=== PATIENT | female | born 1960 | race Caucasian/White ===

== ENCOUNTER 2018-05-29 05:19 | Day surgery (SDC) | payer SELFPAY ==
[2018-05-23 11:33] LABS: Hematocrit 38.6 % (37-47); Hemoglobin 12.6 g/dl (12.0-15.0); Mean Corp Hgb Conc 32.6 g/gl (32-36); Mean Corpuscular Hgb 30.1 pg (27.0-32.0); Mean Corpuscular Volume 92.1 fL (81-99); Mean Platelet Vol. 9.1 fl (6.2-12.0); Platelet Count 248 K/mm3 (150-450); RBC Distribution Width SD 40.5 fl (35.1-43.9); Red Blood Count 4.19 M/mm3 (4.2-5.4); White Blood Count 6.2 K/mm3 (4.4-11.0)
[2018-05-23 11:34] LABS: International Normalized Ratio 1.1; Prothrombin Time (Protime)PT. 13.9 SECONDS (11.7-14.9); Scan Indicated on CBC? Y/N NO
[2018-05-23 11:35] LABS: Partial Thromboplast Time 31.5 Seconds (24.1-36.2)
[2018-05-23 12:02] LABS: Anion Gap 10 (5-15); BUN 13 mg/dL (7-18); BUN/Creat Ratio 17.4 RATIO (10-20); Calcium,Total 8.9 mg/dL (8.5-10.1); Chloride 108 mmol/L (98-107); Creatinine, Serum 0.75 mg/dL (0.55-1.02); EST Glomerular Filtration Rate 85 mL/min (>60); Est Glom Filt Rate - Afr Amer 103 mL/min (>60); Glucose 91 mg/dL (74-106); Potassium 4.3 mmol/L (3.5-5.1); Sodium Level 143 mmol/L (136-145)
[2018-05-29] VITALS (8 sets, daily range): BP systolic 116–139; BP diastolic 71–83; PULSE 56–75; RESP 14–16; TEMP 36–36.3; O2SAT 95–100; BMI 31.4
--- NOTE | 2018-05-29 | EMB_PTH ---
PATIENT: CHEYENNE YIP LOC: [facility] [place] U#:[id number] AGE/SX: 58/F ROOM: RE05/29/[address]: Dr. Sara Mae MD : 1960 BED: DIS: 05/29/2018 SPEC #: [id number] RECD: 05/29/18 14:16 STATUS: YOU REJuan M #: [id number] DYLAN: 05/29/18 00:[address]: Sara Blackwell DEPT: SURGICAL PATHOLOGY RECD BY: Dayne Roth ENTERED: 05/29/18 14:16 SP TYPE: ENDOM BX/C OTHR DR: Dr. Denzel Don DO Tissues: Endometrium, NOS Procedures: Surgery Specimen Level IV HEADER OPERATION: Hysteroscopy, D & C, Myosure PRE-OP DIAGNOSIS: Polyp of corpus uteri and postmenopausal bleeding TISSUE SUBMITTED: Endometrial curettings and fibroid MICROSCOPIC DIAGNOSIS Endometrium, curettings: Endometrial adenocarcinoma, FIGO grade 2. See comment. AM:leti 05/30/18 COMMENT Immunohistochemistry ([id number]) supports the above diagnosis. The adenocarcinoma has villoglandular and focal papillary features. MICROSCOPIC DESCRIPTION Slides are reviewed. GROSS DESCRIPTION Received in fixative is one container labeled with the patient's name and designated endometrial curettings and fibroid. The specimen consists of multiple irregular fragments of hood-white soft tissue that in aggregate measure 7.5 x 3 x 0.3 cm. The entire specimen is submitted in three cassettes. / SJ:leti 05/29/18 TC:0 CPT: 43990
--- NOTE | 2018-05-29 | IMM_PTH ---
PATIENT: CHEYENNE [place]IP [place] [facility] [place][id number] AGE/SX: 58/F ROOM: RE05/29/[address]: Dr. Sara Mae MD : 1960 BED: DIS: 05/29/2018 SPEC #: [id number] RECD: 05/30/18 12:10 STATUS: YOU REQ #: [id number] DYLAN: 05/29/18 00:[address]: Sara Blackwell DEPT: IMMUNOHISTOCHEMISTRY RECD BY: Sarah Díaz ENTERED: 05/30/18 12:13 SP TYPE: IMMUNO OTHR DR: Dr. Denzel Don, DO Tissues: Endometrium, NOS Procedures: MSH2 (add) MLH-1 (add) MSH6 (add) Anti-PMS2 (add) CEA (add) CK20 (add) CK7 (add) CK8 (add) KELLY (add) KI-67 (add) P53 (add) NM (add) Vimentin (add) 34BE12 (add) ER (initial) PHYSICIAN & [address] [address] SPECIMEN INFORMATION: Tissue Source: Endometrial curettings Clinical Info: Polyp of corpus uteri and postmenopausal bleeding Specimen Number: [id number] #1 CPT code: 57412, 47184 x14 METHODOLOGY: Deparaffinized sections of prefer/formalin-fixed tissue or PAP/DQ stained slides are incubated with monoclonal/polyclonal antibodies/oligonucleotide probes. Localization is made via biotin free immunoperoxidase method. Appropriate controls are performed and reacted as expected. Results on target cell population are indicated in the following table: RESULTS: ANTIBODY / CLONE RESULT Block 1 ER (6F11) positive NM (1E2) positive CEA (11-7/TF-3HB-1) negative Vimentin (V9) positive CK7 (OV-TL12/30) positive CK8 (47zcrdC21) positive 34BE12 (34BE12) positive CK20 (KS20.8) negative KELLY (E29) positive Ki-67 (30-9) positive, moderate P53 (DO-7) positive MSH2 (25D12) positive MSH6 (44) positive MLH-1 (M1) positive PMS2 (VOV4651) positive These tests were developed and their performance characteristics determined by [facility]. They may not have been cleared or approved by the U.S. Food and Drug Administration. The FDA has determined that such clearance or approval is not necessary. INTERPRETATION: Endometrial curettings: Consistent with endometrial adenocarcinoma, FIGO grade 2 ADDENDUM ADDENDUM ADDENDUM ADDENDUM 06/11/2018 11:55 ADDENDUM 06/11/2018 11:55 ADDENDUM 06/11/2018 11:55 ADDENDUM 06/11/2018 11:55 ADDENDUM 06/11/2018 11:55 There is no evidence of microsatellite instability. AM:leti 06/11/18
--- NOTE | 2018-05-29 08:04 | PCM.OPRPT ---
Problem List (1) Postmenopausal bleeding Status: Acute Comment: Thickened endometrial stripe Report of Operation Date of Procedure: 05/29/18 Pre-Operative Diagnosis: Postmenopausal bleeding Post-Operative Diagnosis: Postmenopausal bleeding Surgery/Procedure Performed:: Hysteroscopy, dilation and curettage, Myosure endometrial resection and myomectomy Description of Surgical Findings:: Anterior submucosal fibroid type II Abundant fluffy endometrium over the left and posterior uterine parish Examination under anesthesia was significant for mild to moderate cystocele > 1cm apical to hymenal ring and moderate rectocele within 1cm apical of hymenal ring. There was good uterine descensus. Patient would be a candidate for vaginal hysterectomy if indicated. Type of Anesthesia:: Local MAC Anesthesiologist: Ant Locke Specimen's removed: Endometrial curettings and fibroid Drains: Urine 150 mL Estimated Blood Loss (mL): 5 Fluids Replaced: 800 mL Description of Procedure: Indications: Roberta is a 58-year-old postmenopausal woman with history of bleeding. She had an ultrasound demonstrating a 16 mm endometrial stripe. She was advised to proceed with hysteroscopy, D&C with myosure endometrial resection. Risks, benefits, indications and alternatives of procedure were reviewed. Consents were signed. Procedure: The patient was taken to the operating room and signed and was performed. She is placed in a dorsal supine position and induced under MAC anesthesia. She is then placed into dorsal lithotomy and examination under anesthesia performed. A weighted speculum was placed into the vagina the cervix visualized and grasped the anterior cervical lip using a single-tooth tenaculum. A paracervical block was placed with a total of 20 cc of 1% lidocaine. The uterus was sounded to 3 inches. The cervix was subsequently dilated and hysteroscopy performed demonstrating the noted findings with abundant fluffy endometrium along the posterior and left uterus obscuring the left tubal ostia. The right tubal ostia was visualized. I proceeded with hysteroscopic endometrial resection using the Myosure device and performed hysteroscopic myomectomy of an anterior wall uterine fibroid. Hysteroscope was removed and I proceeded with sharp curettage the uterus was globally gritty to palpation. The procedure was complete. The tenaculum was removed from the cervix and the speculum removed from the vagina. The tenaculum site had been hemostatic. The patient was then placed into the dorsal supine position, awakened and transferred to the recovery room without complication. Sponge counts were correct x2. Fluid deficit was approximately 200 mL. - Complications None - Admit VTE Documentation VTE Present on Admission: No VTE Mechan Device Prophylaxis: SCD's VTE Pharm Prophylaxis ordered?: No
--- NOTE | 2018-05-29 08:20 | PCM.DC.D&C ---
Discharge Diet: No Restrictions Discharge Activity: Return to Normal Activity, May Shower, - - No driving for 24-48 hours, no tub bath for 1-2 weeks May resume sexual activity in: 4 weeks Call your doctor if you observe: Fever of 101 or Higher, Inability to urinate, Inability to have a bowel movement, Using more than one pad per hour, Shortness of breath, Chest pain, Calf discomfort, Uncontrolled pain Allergies/Adverse Reactions: Allergies No Known Allergies Allergy (Verified 05/22/18 08:13) Medications to take at Discharge Alprazolam [Xanax] 0.25 mg PO QHS 05/22/18 Omeprazole 40 mg PO DAILY 05/22/18 Turmeric Root Extract [Turmeric] 1,000 mg PO DAILY 05/22/18 Ibuprofen 600 mg PO TID PRN #30 tab 05/29/18 The following prescriptions were given: Ibuprofen 600 mg PO TID PRN #30 tab PRN Reason: Pain Primary Care Physician: Denzel Don DO [Primary Care Provider] - Test Results: Test results from this visit will be discussed in further detail at your follow-up appointment, if applicable. Please Follow Up With: Sara Conroy MD When: 2 weeks
== END 2018-05-29 09:11 | disposition home or self-care (01) ==
LOC: SDC 05:19 → AC 05:20
PROVIDERS: Family Provider Student in an Organized Health Care Education/Training Program; PCP Student in an Organized Health Care Education/Training Program; Visit Provider Obstetrics & Gynecology
PROC: (CPT 58561; principal; 2018-05-29 07:00)
DX: C54.1 Malignant neoplasm of endometrium (principal); D25.0 Submucous leiomyoma of uterus; N95.0 Postmenopausal bleeding; N81.10 Cystocele, unspecified; N81.6 Rectocele; E78.00 Pure hypercholesterolemia, unspecified; F41.9 Anxiety disorder, unspecified; I49.9 Cardiac arrhythmia, unspecified; I35.0 Nonrheumatic aortic (valve) stenosis; K21.9 Gastro-esophageal reflux disease without esophagitis; Z87.891 Personal history of nicotine dependence; Z79.899 Other long term (current) drug therapy
CPT/HCPCS: 58561; 58563; 36415; 80048; 85027; 85610; 85730; 86850; 86900; 88305; 88341; 88342; 93005; J7120; J2405

== ENCOUNTER → 2018-06-30 12:38 | Outpatient (CLI) | payer SELFPAY ==
--- NOTE | 2018-06-30 12:44 | CT_ITS ---
STUDY: CT CHEST WITH CONTRAST REASON FOR EXAM: Female, 58 years old. History of cervical cancer. Recent resection of lymph nodes from the left groin. RADIATION DOSAGE (If Supplied By Facility): CTDIvol = ( 14.26 ) mGy, DLP = ( 1338.03 ) mGycm TECHNIQUE: Transaxial imaging was performed following intravenous administration of 100 ml of Isovue 300 contrast material. Multiplanar coronal and sagittal images were reformatted. Individualized dose optimization techniques were used for this CT. COMPARISON: None. FINDINGS: The lungs are normal. There is no demonstrated pleural abnormality. Normal heart and pericardium. Normal mediastinum. Normal hilar regions. Normal enhanced pulmonary arteries. Normal aorta arch and descending thoracic aorta. There are multi-level degenerative changes of the thoracic spine. Small cysts are seen in the upper pole of the right kidney. CT/Chest WITH Contrast IMPRESSION: No acute abnormality is seen. Electronically Signed: Delonte Lorenzana MD at 15:45 EDT Tel [phone], Service support ,
--- NOTE | 2018-06-30 12:44 | CT_ITS ---
STUDY: CT ABDOMEN AND PELVIS WITH CONTRAST REASON FOR EXAM: Female, 58 years old. Cervical cancer. Recent resection of lymph nodes from the left groin. RADIATION DOSAGE (If Supplied By Facility): CTDIvol = ( 14.26 ) mGy, DLP = ( 1338.03 ) mGycm TECHNIQUE: Transaxial images were obtained from the dome of the diaphragm to the symphysis pubis with oral contrast. 100 ml of Isovue 300 contrast was administered. Sagittal and coronal images were reconstructed. Individualized dose optimization techniques were used for this CT. COMPARISON: None. FINDINGS: The visualized lung bases are unremarkable. The visualized portions of the heart are within normal limits. Normal liver. Normal gallbladder and extrahepatic biliary system. Normal spleen. Normal pancreas. Normal bilateral adrenal glands. Multiple small cysts are seen in the right kidney. The largest measures 2.2 cm x 2 cm. Subcentimeters cysts in the mid upper portion of the left kidney There is a small hiatal hernia. Normal small intestine. There are multiple colonic diverticula consistent with diverticulosis. Moderate amount of fecal material is seen in the colon. The appendix is visualized and appears normal. Normal abdominal aorta. Normal inferior vena cava. Normal retroperitoneum. Normal urinary bladder. There is absence of the uterus consistent with a prior hysterectomy. There is a 1.2 cm x 1.4 cm fat-containing lymph node in the left hemipelvis. Normal abdominal wall. There are degenerative changes of the visualized lumbar spine. CT/Abdomen/Pelvis WITH Contrast IMPRESSION: Status post hysterectomy. No acute abnormality is seen. Electronically Signed: Delonte Lorenzana MD at 15:48 EDT Tel [phone], Service support ,
== END ==
PROVIDERS: Family Provider Student in an Organized Health Care Education/Training Program; PCP Student in an Organized Health Care Education/Training Program; Visit Provider Internal Medicine Hematology & Oncology
DX: C54.1 Malignant neoplasm of endometrium (principal); C77.9 Secondary and unspecified malignant neoplasm of lymph node, unspecified
CPT/HCPCS: 71260; 74177; Q9967

== ENCOUNTER → 2018-07-03 10:22 | Outpatient (CLI) | payer SELFPAY ==
[2018-07-03 08:54] VITALS: BMI 30.7
--- NOTE | 2018-07-03 10:26 | CDU_ITS ---
Reason For Study: Carotid bruit Rt. Velocities/BP Lt. Velocities/BP Prox CCA 78.6/14.7 cm/sec. Prox CCA 85.0/21.1 cm/sec. Mid CCA 82.1/22.9 cm/sec. Mid CCA 82.7/24.0 cm/sec. Dist CCA 94.4/25.2 cm/sec. Dist CCA 84.4/27.0 cm/sec. Prox ICA 66.3/25.8 cm/sec. Prox ICA 85.3/27.4 cm/sec. Mid ICA 70.4/27.6 cm/sec. Mid ICA 68.3/21.9 cm/sec. Dist ICA 72.7/28.7 cm/sec. Dist ICA 67.0/23.6 cm/sec. Rt. ICA/CCA = .89. Lt. ICA/CCA = 1.0. Prox ECA 60.4/14.7 cm/sec. Prox ECA 66.8/14.0 cm/sec. Rt. Vert. 54.5/18.2 cm/sec. Lt. Vert. 65.1/21.1 cm/sec. Right Extracranial There is no significant atherosclerotic plaque noted in the right common carotid artery. There is no significant atherosclerotic plaque noted in the right internal carotid artery. There is no significant atherosclerotic plaque noted in the right external carotid artery. Antegrade flow is noted in the right vertebral artery. Left Extracranial There is no significant atherosclerotic plaque noted in the left common carotid artery. There is no significant atherosclerotic plaque noted in the left internal carotid artery. There is no significant atherosclerotic plaque noted in the left external carotid artery. Antegrade flow is noted in the left vertebral artery. Procedure Carotid Duplex 94123. Exam performed in department. Interpretation Summary No hemodynamically significant plague or stenosis bilateral extracranial internal carotid arteries with <50% stenosis bilaterally Normal flow bilateral external carotids Patent and antegrade vertebrals bilaterally Ordering Physician: Eduardo Choe Referring Physician: Denzel Talavera Performed By: Yaima Deluca RVT
== END ==
PROVIDERS: Family Provider Student in an Organized Health Care Education/Training Program; PCP Student in an Organized Health Care Education/Training Program; Referring Provider Surgery; Visit Provider Surgery
DX: R09.89 Other specified symptoms and signs involving the circulatory and respiratory systems (principal)
CPT/HCPCS: 93880

== ENCOUNTER 2018-07-11 05:58 | Day surgery (SDC) | payer SELFPAY ==
[2018-07-03 08:54] VITALS: BMI 30.7
[2018-07-11 06:18] VITALS: BP 127/68; PULSE 64; RESP 16; TEMP 36.7; O2SAT 98; BMI 30.7
[2018-07-11] MEDS: Cefazolin 2 GM in 0.9% Normal Saline 100 ML IV (08:16)
--- NOTE | 2018-07-11 08:19 | DCINST_ITS ---
Discharge Diet: Light diet - advance as tolerated - if you have questions about your diet instructions, please talk to you doctor. Discharge Activity: May Not Drive - for 1 week or while taking narcotic pain medicine. May shower in (days): 1 Lifting Restrictions: 10 pounds Call your doctor if your incision/area has: Continuous Slow Oozing, Sudden Increased Bleeding, Increased Pain/ Swelling, Increased Redness, Foul Smelling Discharge Call your doctor if you observe: Fever of 101 or Higher Suture Line Care: Avoid Pulling/Pushing, Avoid Pinching/Bending Additional Dressing/Incision Instructions:: Change or remove dressing in 4 days. Leave steri-strips in place for 1 week. Allergies/Adverse Reactions: Allergies No Known Allergies Allergy (Verified 07/08/18 08:16) Medications to take at Discharge Alprazolam [Xanax] 0.25 mg PO QHS 05/22/18 Omeprazole 40 mg PO DAILY 05/22/18 Turmeric Root Extract [Turmeric] 1,000 mg PO DAILY 05/22/18 Lidocaine/Prilocaine [Lidocaine-Prilocaine Cream] 30 gm TP DAILY PRN PRN #1 cream..g. 07/01/18 Ondansetron [Zofran Odt] 8 mg PO Q8H PRN PRN 30 Days #30 tab 07/01/18 Multivitamin [Multiple Vitamins] 1 each PO DAILY 07/08/18 Dexamethasone [Decadron] 20 mg PO DAILY 126 Days #60 tablet 07/10/18 Primary Care Physician: Denzel Don DO [Primary Care Provider] - Test Results: Test results from this visit will be discussed in further detail at your follow- up appointment, if applicable. Please Follow Up With: Eduardo Choe MD - [phone] When: You may contact the office for any post op concerns
[2018-07-11] MEDS: Bupivacaine Mpf 0.5% 30 ML VIAL (08:31)
--- NOTE | 2018-07-11 08:59 | PCM.OPRPT ---
Problem List (1) Endometrium cancer Status: Acute Report of Operation Date of Procedure: 07/11/18 Pre-Operative Diagnosis: Endometrial cancer Post-Operative Diagnosis: Same Surgery/Procedure Performed:: Right internal jugular 6 Congolese PowerPort placement Description of Surgical Findings:: Timeout informed consent was obtained. 58-year-old female taken out from placement table underwent monitored anesthesia care. Ancef 2 g given intravenous the right neck and chest were sterilely prepped and draped. Total 16 cc of local was used 1% lidocaine mixed 50-50 with 0.5% Marcaine. Ultrasound was used to identify the right internal jugular vein. Local was instilled under ultrasound guidance. Micropuncture needle inserted. Micropuncture wire inserted. 6 Congolese short sheath dilator was inserted. Local was instilled down upon the chest wall. Transverse incision was created. Subtenons pocket was created. The tubing was tunneled from the neck to the chest. Micropuncture sheath was inserted in the sheath and dilator were removed and 035 J-wire was inserted the sheath dilator was inserted the dilator wire removed the catheter was advanced through the sheath the sheath was split and the catheter was positioned at the SVC atrial junction. The catheter was amputated to length connected to the port and secured there with a port attachment device. The port was placed in the pocket and secured there with 2-0 silk. Skin edges proximate interrupted 3-0 Vicryl subdermal stitches. The neck was closed with interrupted 5-0 Vicryl. Steri-Strips Telfa OpSite dressings applied. The port was accessed it aspirated easily was flushed with saline and then 3 cc of 10 unit/cc heparin solution per [facility] protocol. Sponge and instrument and needle counts were reported the surgeon be correct Blood loss minimal. Specimens none drains none. She was taken to the recovery area in satisfactory condition. Stat portable chest x-ray is pending. Eduardo Choe M.D., F.A.C.S. Type of Anesthesia:: Local MAC Anesthesiologist: [facility]
[2018-07-11 09:11] VITALS: BP 114/68; BP 127/68; PULSE 65; RESP 16; TEMP 36.3; O2SAT 99
[2018-07-11 09:15] VITALS: BP 126/73; BP 127/68; PULSE 63; RESP 16; O2SAT 100
--- NOTE | 2018-07-11 09:15 | RAD_ITS ---
STUDY: X-RAY CHEST REASON FOR EXAM: Female, 58 years old. PORT PLACEMENT TECHNIQUE: Single AP portable view of the chest. COMPARISON: None. FINDINGS: Mediport is seen on the right-sided tip is at the cavoatrial junction is in good position. The lungs are clear and expanded. There is no demonstrated pleural abnormality. Normal size heart. Normal mediastinum and angélica. Normal visualized pulmonary arteries. Normal visualized aortic arch and descending thoracic aorta. Normal visualized thoracic spine. Normal visualized ribs, clavicles, and shoulders. There is no demonstrated abnormality of the visualized soft tissue structures of the upper abdomen. RAD/Chest 1 View (Portable) IMPRESSION: Normal x-ray examination of the chest. Electronically Signed: Jass Jordan MD at 9:32 EDT Tel , Service support ,
[2018-07-11 09:20] VITALS: BP 127/68; BP 138/75; PULSE 64; RESP 16; O2SAT 98
[2018-07-11 09:28] VITALS: BP 124/79; BP 127/68; PULSE 72; RESP 16; TEMP 36.4; O2SAT 99
[2018-07-11 09:59] VITALS: BP 127/68
== END 2018-07-11 10:00 | disposition home or self-care (01) ==
LOC: SDC 06:00 → AC 06:02
PROVIDERS: Family Provider Student in an Organized Health Care Education/Training Program; PCP Student in an Organized Health Care Education/Training Program; Referring Provider Surgery; Visit Provider Surgery
PROC: (CPT 36561; principal; 2018-07-11 07:45)
DX: Z45.2 Encounter for adjustment and management of vascular access device (principal); C54.1 Malignant neoplasm of endometrium; F41.9 Anxiety disorder, unspecified; E78.00 Pure hypercholesterolemia, unspecified; Z79.899 Other long term (current) drug therapy; Z87.891 Personal history of nicotine dependence; R09.89 Other specified symptoms and signs involving the circulatory and respiratory systems; C77.9 Secondary and unspecified malignant neoplasm of lymph node, unspecified
CPT/HCPCS: 00532; 36561; 71045; 77001; J7120; C1788

== ENCOUNTER → 2018-07-22 10:25 | Outpatient (CLI) | payer SELFPAY ==
[2018-07-03 08:54] VITALS: BMI 30.7
--- NOTE | 2018-07-22 10:32 | BI_ITS ---
MAMMOGRAPHY - BILATERAL SCREENING REASON FOR EXAM: Female, 58 years old. Routine annual screening examination. PERTINENT HISTORY: Grandmother with breast cancer. The patient as a history of uterine carcinoma. TECHNIQUE: Digital bilateral breast traci (3D mammographic acquisition) in the CC and MLO projections. 2-D mediolateral oblique (MLO) and craniocaudad (CC) views of both breasts were obtained. CAD: Full Field Digital Mammography with Computer Added Detection was performed. COMPARISON: Comparison is made with prior outside examination dated March 26, 2016. FINDINGS: Breast Composition: There are scattered areas of fibroglandular density. There are no dominant masses or suspicious calcifications. Stable appearance of the left axillary lymph nodes. No other significant abnormalities are identified. There has been no significant change since the prior study. BI/SCREENING MAMM (CAD), BILAT IMPRESSION: Stable bilateral screening mammogram. Yearly follow-up mammogram recommended. (A) ASSESSMENT CATEGORY: BIRADS Category 2: Benign. A letter regarding these results will be sent to the patient by the facility within 30 days. Approximately 10% of breast cancers are not detected by mammography. A normal mammogram should not delay biopsy of a clinically suspicious abnormality. [id number] Electronically Signed: Delonte Lorenzana MD at 13:21 EDT Tel [phone], Service support ,
== END ==
PROVIDERS: Family Provider Student in an Organized Health Care Education/Training Program; PCP Student in an Organized Health Care Education/Training Program; Visit Provider Internal Medicine Hematology & Oncology
DX: Z12.31 Encounter for screening mammogram for malignant neoplasm of breast (principal); C54.1 Malignant neoplasm of endometrium; C77.9 Secondary and unspecified malignant neoplasm of lymph node, unspecified
CPT/HCPCS: 77063; 77067

== ENCOUNTER → 2019-02-04 | Outpatient (CLI) | payer SELFPAY ==
[2018-07-03 08:54] VITALS: BMI 30.7
[2019-01-28 13:11] VITALS: BMI 31.4
--- NOTE | 2019-02-04 06:48 | CT_ITS ---
STUDY: CT ABDOMEN AND PELVIS WITH CONTRAST REASON FOR EXAM: Female, 58 years old. Endometrial Cancer. Status post chemotherapy. RADIATION DOSAGE (If Supplied By Facility): CTDIvol = ( 21.77 ) mGy, DLP = ( 1593.75 ) mGycm TECHNIQUE: Transaxial images were obtained from the dome of the diaphragm to the symphysis pubis with oral contrast. 100mL ml of Isovue 300 contrast was administered. Sagittal and coronal images were reconstructed. Individualized dose optimization techniques were used for this CT. COMPARISON: CT abdomen and pelvis 06/30/2018 FINDINGS: Body wall soft tissues: No acute process. Osseous structures: No acute process. Inferior chest: See chest CT report. Hepatobiliary: Normal. Pancreas: Mild atrophy. Spleen: Normal. Adrenal glands: Normal. Urogenital: Stable benign right renal cysts. Otherwise unremarkable kidneys, collecting systems, ureters, urinary bladder. The uterus is surgically absent. There is no adnexal mass, or cyst and there is no cul-de-sac free fluid. Pelvic floor and sidewalls and retroperitoneum: No mass or adenopathy. Vasculature: No acute process. Stomach: No acute process. Small bowel and mesentery: No acute process. Large bowel: The appendix is not visualized. There is mild sigmoid diverticulosis without evidence of acute diverticulitis. Normal rectum. Free fluid or free air: Moderate ascites. Ascites density approximately 10 Hounsfield units. Somewhat tense appearance of the ascites, marginalized round loops of small bowel, surrounding the margins of the liver, stomach and spleen without free flow into the deep pelvis. Suspicious for malignant ascites/pseudomyxoma. No free air. Omentum: There is extensive omental stranding. This was not present on prior imaging of 06/30/2018. CT/Abdomen/Pelvis W IV Cont ONLY IMPRESSION: Minimally complex ascites, somewhat tense appearance, suggesting the presence of pseudomyxoma peritonei. Extensive omental stranding/caking. These features were not present on prior imaging of June 2018. No defined lymphadenopathy or metastatic disease to the solid organs or bones. Electronically Signed: Vinny Long MD at 8:59 EDT Tel , Service support ,
--- NOTE | 2019-02-04 06:48 | CT_ITS ---
STUDY: CT CHEST WITH CONTRAST REASON FOR EXAM: Female, 58 years old. Follow-up endometrial cancer. Prior hysterectomy and oophorectomy RADIATION DOSAGE (If Supplied By Facility): CTDIvol = ( 21.77 ) mGy, DLP = ( 1593.75 ) mGycm TECHNIQUE: Transaxial imaging was performed following intravenous administration of 100mL IV Isovue 300. Sagittal and coronal 2-D MPR Individualized dose optimization techniques were used for this CT. COMPARISON: CT abdomen and pelvis 02/04/2018, CT chest 06/30/2018. FINDINGS: Supraclavicular: Normal. Body wall soft tissues: No acute process. Upper abdomen: Prominent ascites in the upper abdomen. Benign right renal cyst. Osseous structures: No acute process. Mediastinum: Minimal sliding hiatal hernia. Radiodense contrast is present within the distal esophagus consistent with the presence of reflux and associated with mild circumferential thickening of wall the distal esophagus. Cardiovascular: Mediport catheter tip in distal right atrium. No visible coronary calcifications. Nondilated aorta. Nondilated central pulmonary arteries. Lungs: Minimal right lung base atelectasis. Small layering left pleural effusion with dense atelectasis within the basilar segments. Minimal fissural atelectasis of the lingular fissure. CT/Chest WITH Contrast IMPRESSION: Left effusion, dense basilar segment atelectasis in the left lower lobe. Ascites. Electronically Signed: Vinny Long MD at 8:53 EDT Tel , Service support ,
== END | disposition home or self-care (01) ==
PROVIDERS: Family Provider Student in an Organized Health Care Education/Training Program; PCP Student in an Organized Health Care Education/Training Program; Referring Provider Internal Medicine Hematology & Oncology; Visit Provider Internal Medicine Hematology & Oncology
DX: C54.1 Malignant neoplasm of endometrium (principal)
CPT/HCPCS: 71260; 74177; Q9967